=== PATIENT | male | born 1990 | race Caucasian/White ===

== ENCOUNTER 2018-08-25 14:49 | Emergency (ER) | payer MEDICAID ==
[~2018-08-25] VITALS: Ht 180.3 cm; Wt 103.1 kg
[2018-08-25 14:59] VITALS: Ht 180.3 cm; Wt 103.1 kg
--- NOTE | 2018-08-26 06:42 | ERD ---
ER Documentation Chief Complaint Chief Complaint abd pain "with movement" x 4 days denies N/V or pain with urination HPI Pt is an otherwise healthy 28 year old M who presents to the ED with complaints of progressively worsening LUQ abdominal pain x 5 days. States pain is currently 6/10 in intensity and exacerbating when twisting his body to the left or when lying supine. He reports feeling "full" and bloated. He took Rebecca seltzer at home with temporary improvement of his pain. He admits to a diet high in carbs and carbonated drinks. He denies any hx of similar pain. Denies flank pain, constipation, flatulence, benching, urinary frequency, urgency, dysuria, fevers, chills, nausea, vomiting or any other symptoms. Denies recent cough or URI type symptoms. No recent trauma or fall onto his ribs. ROS All systems reviewed and are negative except as per history of present illness. PMhx/Soc Medical and Surgical Hx: pt denies Medical Hx, pt denies Surgical Hx Hx Alcohol Use: Yes Hx Substance Use: No Smoking Status: Light tobacco smoker Physical Exam Vitals Vital Signs Date Temp Pulse Resp B/P (MAP) Pulse Ox O2 O2 Flow FiO2 Time Delivery Rate 08/25/18 98.0 71 18 143/93 98 14:59 (110) Physical Exam Const: No acute distress Head: Atraumatic Eyes: Normal Conjunctiva ENT: Normal External Ears, Nose and Mouth. Neck: Full range of motion. No meningismus. Resp: Clear to auscultation bilaterally Cardio: Regular rate and rhythm, no murmurs Abd: Soft, + LUQ tenderness to palpation, tympanic to percussion. non dist ended. Normal bowel sounds. Negative Mcburney's point TTP. Negative Mei's Skin: No petechiae or rashes Back: No midline or flank tenderness Ext: No cyanosis, or edema Neur: Awake and alert Psych: Normal Mood and Affect Procedures/MDM EMERGENT LABS AND DIAGNOSTIC STUDIES: Radiology Results as interpreted by Radiology: PROCEDURE: Right upper quadrant ultrasound CLINICAL INDICATION: Left flank pain TECHNIQUE: Multiple real-time images were acquired of the patient's abdomen and right retroperitoneum utilizing a high resolution transducer. COMPARISON: None FINDINGS: The liver is increased in echogenicity and measures 16.7 cm. No focal hepatic masses are seen. The gallbladder is physiologically distended. There is no evidence of gallstones, gallbladder wall thickening, or pericholecystic fluid. The intra and extrahepatic bile ducts are normal in caliber. The common bile duct measures 4.9 mm. Pancreas is not visualized due to overlying bowel gas. Survey views of the kidneys demonstrates no evidence renal calculi or o bstructive uropathy. Right kidney measures 12.5 cm, and the left kidney measures 12 point 2 cm IMPRESSION: 1. No evidence of cholelithiasis or acute cholecystitis. 2. Fatty change of the liver. 3. No renal calculi or obstructive uropathy. 4. Pancreas not visualized RPTAT: HH .Binu Hutchison MD, MD Date Time Electronically viewed and signed by .Binu Hutchison MD, on 08/25/2018 17:36 .W/ CC: MONCHO FARIA-Suhas Nursing Notes Reviewed. Previous Medical Records requested via the Electronic Health Record. EMERGENCY DEPARTMENT COURSE / MEDICAL DECISION MAKING: Pt is an otherwise healthy 28 year old M who presents to the ED with LUQ abdominal pain. Pt has no signs of an acute surgical abdomen on physical exam. US revealed bowel gas but otherwise no signs of cholelithiasis, cholecystitis or nephrolithiasis. I have low suspicion for cholodocolithiasis or pancreatitis. At this time, patient is stable for outpatient follow up and management. I r ecommended dietary and lifestyle modifications such as decreasing amount of carbonated drinks and OTC medications such as Gas-X for his abdominal discomfort. He was given a list of clinic for follow up in 2 days, otherwise return to the ED for any new or worsening symptoms. Prior to discharge, patients vital signs have been reviewed SPECIALIST FOLLOW UP RECOMMENDED: None Patient's blood pressure was elevated (>120/80) but appears stable without evidence of hypertension emergency or urgency. The patient was counseled about the risks of hypertension and urged to pursue outpatient monitoring and therapy within a week with their primary care physician Departure Diagnosis: Primary Impression: Abdominal gas pain Condition: Stable Patient Instructions: Abdominal Pain Referrals: [facility] YOU HAVE RECEIVED A MEDICAL SCREENING EXAM AND THE RESULTS INDICATE THAT YOU DO NOT HAVE A CONDITION THAT REQUIRES URGENT TREATMENT IN THE EMERGENCY DEPARTMENT. FURTHER EVALUATION AND TREATMENT OF YOUR CONDITION CAN WAIT UNTIL YOU ARE SEEN IN YOUR DOCTORS OFFICE WITHIN THE NEXT 1-2 DAYS. IT IS YOUR RESPONSIBILITY TO MAKE AN APPOINTMENT FOR FOLOW-UP CARE. IF YOU HAVE A PRIMARY DOCTOR --you should call your primary doctor and schedule an appointment IF YOU DO NOT HAVE A PRIMARY DOCTOR YOU CAN CALL OUR PHYSICIAN REFERRAL HOTLINE AT IF YOU CAN NOT AFFORD TO SEE A PHYSICIAN YOU CAN CHOSE FROM THE FOLLOWING [facility] [id number] [facility]. [facility] [address] [facility] [facility] [address] [facility] [facility] [address] [facility] [address] [facility]. [facility]. [address] Additional Instructions: Thank you very much for allowing us to participate in your care. Your health and safety is our top priority at [facility]. Call your primary care doctor TOMORROW for an appointment during the next 2-4 days and bring all the information and medications prescribed. If the symptoms get worse and your provider is unavailable, return to the Emergency Department immediately. MONCHO FARIA PA-C Aug 26, 2018 06:41
== END 2018-08-25 18:21 | disposition home or self-care (01) ==
LOC: FTE 14:49
DX: R14.1 Gas pain (principal); F17.210 Nicotine dependence, cigarettes, uncomplicated
CPT/HCPCS: 76705; Z7502